=== PATIENT | male | born 1985 | race Caucasian/White ===

== ENCOUNTER 2016-10-27 05:20 | Emergency (ER) | payer OTHER ==
[~2016-10-27] VITALS: Ht 172.7 cm; Wt 81.0 kg
[2016-10-27] MEDS ORDERED: IBUPROFEN 600MG TABLET PO ONE (07:30)
[2016-10-27 07:48] VITALS: BP 120/84
== END 2016-10-27 08:50 | disposition home or self-care (01) ==
LOC: ER 05:25
DX: M54.2 Cervicalgia (principal); M25.511 Pain in right shoulder; V89.2XXA Person injured in unspecified motor-vehicle accident, traffic, initial encounter; Y93.89 Activity, other specified; Y92.89 Other specified places as the place of occurrence of the external cause; Y99.8 Other external cause status
CPT/HCPCS: 72125; 72128; 73030; 99284